=== PATIENT | female | born 1940 | race Caucasian/White ===

== ENCOUNTER 2018-06-06 07:43 | Day surgery (SDC) | payer OTHER ==
--- NOTE | 2018-06-06 07:32 | EKG ---
Test Date: 2018-06-06 Test Time: 07:22:36 Division Head: SHAI MEASUREMENT RESULTS: Intervals: Rate: 79 NH: QRSD: 90 QT: 360 QTc: [address]: P: NH: QRS: 49 T: 60 INTERPRETIVE STATEMENTS: Atrial fibrillation Abnormal ECG Compared to ECG 07/16/2011 16:54:31 Sinus bradycardia no longer present Electronically Signed On 06-06-18 07:31:37 DIRECTOR PRISON by David Bautista
[2018-06-06] MEDS ORDERED: NA CHLORIDE 0.9% 1,000 ML ONE (08:15)
[2018-06-06] MEDS ORDERED: CEFAZOLIN 1GM (PREMIX IV) 1 GM/50 ML BAG ONE (08:15)
--- NOTE | 2018-06-06 09:06 | RAD REPORT ---
EXAM DESCRIPTION: Gaston Mahmood (2 Views)06/06/2018 7:41 am CLINICAL HISTORY: Preop COMPARISON: 2017 FINDINGS: The lungs appear clear of acute infiltrate. The heart is normal size IMPRESSION: No acute abnormalities displayed
[2018-06-06] MEDS ORDERED: PROPOFOL 200 MG/20 ML VIAL IV ONE (10:36)
[2018-06-06] MEDS ORDERED: LIDOCAINE 2% MPF 5 ML VIAL ONE (10:37)
[2018-06-06] MEDS ORDERED: FENTANYL CITR 100 MCG/2 ML ONE (10:37)
[2018-06-06] MEDS ORDERED: LIDOCAINE 1% MPF 5 ML VIAL ONE (11:09)
[2018-06-06] MEDS ORDERED: Mastisol Adhesive Liq ONE (11:49)
[2018-06-06] MEDS ORDERED: HYDROCODONE/APAP 7.5/325 MG TAB ONE (12:36)
[2018-06-06 12:46] VITALS: BP 140/70; TEMP 97.2; O2SAT 97
--- NOTE | 2018-06-07 00:38 | OP ---
Date of Procedure: 06/06/2018 Surgeon: Antione Chakraborty MD Solution Strategist: TEJA Wang. Preoperative Diagnosis: Left-sided headache, rule out temporal arteritis. Postoperative Diagnosis: Left-sided headache, rule out temporal arteritis. Procedure: Left temporal artery biopsy. Estimated Blood Loss: Minimal. Specimen: Left temporal artery. Findings: As above. Anesthesia: MAC. Complications: None. Disposition: The patient tolerated the procedure in stable condition and taken to the recovery in go od general condition. Description Of Procedure: The patient was brought to the OR and placed in supine position. MAC anes thesia was begun. The patient was prepped and draped in usual sterile fashion. Lidocaine 1% was inf iltrated locally. After ultrasound-guided device was used to confirm location of the branch of the t emporal artery, a 4-cm incision was made anterior superiorly to the left ear. Subcutaneous tissue wa s divided. Branch of temporal artery was identified. Proximal and distal control was obtained. A 4 -cm segment was excised and sent to Pathology and then, 4-0 silk was used to tie off both ends. Woun d was irrigated. Bleeding was controlled with cautery. A 3-0 chromic was used to approximate the blackman bcutaneous tissue and close the skin. Sterile dressing was applied. The patient was awakened and ta fletcher to recovery in good general condition. Discharge Note: The patient will go to day surgery, then home when stable. Disposition: Home. Condition: Stable. Discharge Instructions: Resume home meds and diet. Activity as tolerated. No heavy lifting. Remov e outer dressing in 2 days. Shower. Keep wound clean and dry. Keep Steri-Strips on at all times. Follow up in my office in 2 weeks. Call for appointment. Follow with Dr. Negron in 1 week. AMOS/TEGAN Voice ID: [id number] Report ID: [id number]
== END 2018-06-06 13:07 | disposition home or self-care (01) ==
LOC: OR 07:43
PROVIDERS: ATTEND Surgery
PROC: 03BT0ZX Excision of Left Temporal Artery, Open Approach, Diagnostic (ICD-10-PCS; principal; 2018-06-06 10:30)
DX: R51 Headache (principal); I10 Essential (primary) hypertension; E11.9 Type 2 diabetes mellitus without complications; Z80.9 Family history of malignant neoplasm, unspecified; Z83.3 Family history of diabetes mellitus
CPT/HCPCS: 37609; 71046; 82962 ×2; 88305; 93005; J0690; J2704; J3010; J7030

== ENCOUNTER 2019-02-22 10:33 | Observation (INO) | payer OTHER ==
[2019-02-22] MEDS ORDERED: HYDROMORPHONE HCL 1 MG/ML INJ IV PRN (12:28)
[2019-02-22 12:29] VITALS: BMI 25.4
[2019-02-22] MEDS ORDERED: ONDANSETRON 4 MG/2 ML VIAL IV PRN (13:00)
[2019-02-22] MEDS ORDERED: POLYETHYL GLY 3350 17 GM/DOSE PO PRN (13:00)
[2019-02-22] MEDS ORDERED: ONDANSETRON 4 MG (ODT) TAB PO PRN (13:00)
[2019-02-22] MEDS ORDERED: DIPHENHYDRAMINE 25 MG TAB/CAP PO PRN (13:00)
[2019-02-22] MEDS ORDERED: ACETAMINOPHEN 325 MG TABLET PO PRN (13:00)
[2019-02-22] MEDS ORDERED: LOPERAMIDE HCL 2 MG CAPSULE PO PRN (13:00)
[2019-02-22] MEDS: NACHLORIDE 0.45% 1,000 ML IV SCH (14:12)
[2019-02-22 14:53] LABS: Urine Appearance CLEAR; Urine Bilirubin NEGATIVE (NEG); Urine Blood 1+ (NEG); Urine Color YELLOW; Urine Glucose TRACE (NEG); Urine Protein NEGATIVE (NEG); Urine Specific Gravity 1.015 (1.005-1.030); Urine Urobilinogen 0.2 mg/dL (0.2-1.0); Urine pH 5.5 (5.0-7.0)
[2019-02-22 14:55] LABS: Absolute Lymphocytes (CBC) 1.2 K/uL (0.7-4.9); Basophils % 0.6 % (0-1.3); Hematocrit 31.7 % (36.0-45.0); Lymphocytes % 9.2 % (15.3-44.8); MPV 8.4 fL (7.6-11.3); RBC Red Blood Cell Count 3.94 M/uL (3.86-4.86)
[2019-02-22 14:58] LABS: Urine Microscopic Reflex ORDER UMIC
[2019-02-22 15:11] LABS: Protime INR 1.34
[2019-02-22 15:17] LABS: UR MICROALBUMIN 7.5 mg/dL (< 1.9)
[2019-02-22 15:24] LABS: Urine Bacteria <20 /HPF (<20); Urine Culture Reflex Order NOT NEEDED; Urine Mucus 1+ /HPF (NONE SEEN)
[2019-02-22 15:24] LABS: Albumin 3.5 g/dL (3.4-5.0); Bilirubin Direct 0.2 mg/dL (0-0.2); Bilirubin Total 0.6 mg/dL (0.2-1.0); Magnesium 1.5 mg/dL (1.8-2.4); Potassium 4.4 mmol/L (3.5-5.1); Protein, Total 6.3 g/dL (6.4-8.2); Thyroid Stimulating Hormone 1.15 uIU/mL (0.360-3.740)
--- NOTE | 2019-02-22 16:21 | RAD REPORT ---
EXAM DESCRIPTION: CT - Abdomen Pelvis W/Wo Contrast - 02/22/2019 3:32 pm CLINICAL HISTORY: abd pain Abdominal pain, flank pain COMPARISON: CT ABD PELVIS W CONTRAST dated 06/05/2009 TECHNIQUE: Axial non-contrast CT imaging was performed. Following this, biphasic contrast enhanced i maging through the abdomen and pelvis was performed with coronal and sagittal reformatted images. All CT scans are performed using dose optimization technique as appropriate and may include automated exposure control or mA/KV adjustment according to patient size. FINDINGS: The lower lung orourke are clear. Small hiatal hernia. The liver, spleen, pancreas and adrenal glands are normal. Severe right-sided hydronephrosis is present. There is no obstructing stone visualized. Findings are likely related to any right UPJ obstruction, potentially from a crossing vessel. Cysts are present in the cortex of both kidneys. Diverticulosis is present. Cholelithiasis is suspected. No bowel obstruction, free fluid or abscess. Appendectomy. No fracture or aggressive marrow process is seen. IMPRESSION: Severe right-sided hydronephrosis is present without obstructing calculus. This is favor ed to be related to a chronic UPJ obstruction, possibly related to a crossing vessel.
--- NOTE | 2019-02-22 16:35 | RAD REPORT ---
EXAM DESCRIPTION: RAD - Chest Pa And Lat (2 Views) - 02/22/2019 3:55 pm CLINICAL HISTORY: abd pain Chest pain. COMPARISON: Chest Pa And Lat (2 Views) dated 06/06/2018; Chest Pa And Lat (2 Views) dated 04/29/2017; C HEST PA AND LAT 2 VIEW dated 06/05/2009 FINDINGS: The lungs are hyperexpanded but clear. The heart is normal in size. No displaced fractures . IMPRESSION: Mild COPD.
[2019-02-22 17:25] LABS: Blood Morphology Comment NOT SEEN (NOT SEEN); Platelet Estimate ADEQ; Urine White Blood Cell Casts OK
[2019-02-22] MEDS: CARVEDILOL 12.5 MG TAB PO SCH (21:00)
[2019-02-22] MEDS ORDERED: ATORVASTATIN 10 MG TAB PO SCH (21:00)
[2019-02-23] MEDS: NACHLORIDE 0.45% 1,000 ML IV SCH (03:33)
[2019-02-23] MEDS ORDERED: LEVOTHYROXINE SOD 0.025 MG TAB PO SCH (06:00)
[2019-02-23 07:59] LABS: Absolute Lymphocytes (CBC) 2.1 K/uL (0.7-4.9); Basophils % 1.2 % (0-1.3); Hematocrit 34.3 % (36.0-45.0); Lymphocytes % 18.3 % (15.3-44.8); MPV 8.1 fL (7.6-11.3); RBC Red Blood Cell Count 4.25 M/uL (3.86-4.86)
[2019-02-23] MEDS ORDERED: METFORMIN HCL 500 MG TAB PO SCH (08:00)
[2019-02-23 08:36] LABS: Magnesium 1.6 mg/dL (1.8-2.4); Potassium 4.4 mmol/L (3.5-5.1)
--- NOTE | 2019-02-23 08:39 | EKG ---
Test Date: 2019-02-22 Test Time: 13:40:00 Horse Trainer: RANDEE MEASUREMENT RESULTS: Intervals: Rate: 112 MA: QRSD: 84 QT: 338 QTc: 461 [place]: P: MA: QRS: 67 T: 38 INTERPRETIVE STATEMENTS: Atrial fibrillation with rapid ventricular response Abnormal ECG Compared to ECG 06/06/2018 07:22:36 No significant changes Electronically Signed On 02-23-19 08:38:59 CDT by David Bautista
[2019-02-23] MEDS ORDERED: FUROSEMIDE 40 MG/4 ML VIAL IV ONE (08:53)
[2019-02-23] MEDS ORDERED: CITALOPRAM 10 MG TABLET PO SCH (09:00)
[2019-02-23] MEDS ORDERED: ENOXAPARIN 40 MG/0.4 ML SQ SCH (09:00)
[2019-02-23] MEDS ORDERED: IRBESARTAN 150 MG TAB PO SCH (09:00)
[2019-02-23] MEDS: CARVEDILOL 12.5 MG TAB PO SCH ×2 (09:00→12:29)
[2019-02-23] MEDS ORDERED: predniSONE 5 MG TAB PO SCH (09:00)
[2019-02-23] MEDS ORDERED: RANITIDINE 150 MG TABLET PO SCH (09:00)
--- NOTE | 2019-02-23 12:02 | RAD REPORT ---
EXAM DESCRIPTION: NM - Kidney Imag W/Flow F W - 02/23/2019 11:47 am CLINICAL HISTORY: to r/o upj obstructionflank pain COMPARISON: CT study February 22 TECHNIQUE: The patient was administered 10.9 millicuries technetium 99 M Mag 3. Dynamic flow imaging was obtained of the kidneys and bladder. Patient was administered 36 milligrams Lasix 10 minutes fol lowing initial radiopharmaceutical administration. Time activity curves were generated for each kidne y. FINDINGS: Dynamic flow imaging shows normal prompt activity of the left renal parenchyma extending q uickly into a prominent left renal pelvis. This matches the CT study. There is rapid drainage through the left collecting system into the urinary bladder. Right kidney does demonstrate activity in the cortical tissue but this is substantially diminished wh en compared to the left. No collecting system opacifications seen over the course of the dynamic flow imaging. The normal left time activity curve is seen. Time to peak activity was 6.4 minutes. Diminishing activ ity was noted prior to Lasix administration. There is continued decreasing activity in response to th e Lasix in the left kidney. Right kidney peak activity occurred at the very end of the imaging window. This could indicate that p eak activity has not been reached. There was no response to Lasix. Split function calculation was 62% left and 38% right. IMPRESSION: Right kidney UPJ obstruction pattern. There was no response to Lasix. No stone seen on t he recent CT study. This could be a congenital stricture or stricture secondary to a prior stone or i nflammation. No left kidney abnormality.
--- NOTE | 2019-02-23 12:49 | CON ---
History Of Present Illness: This is 78-year-old lady, who has developed right sudden flank pain. She was diagnosed with severe right hydronephrosis, right UPJ obstruction, very obstructed kidney, difficult to say whether it is crossing the vessel or not. Because the kidneys are so obstructed, she needs to go ahead and try to do a cysto-retrograde, possible place a stent. All the general information, alternatives, and risks were reviewed with her. She will need more definitive therapy later on. Past Medical History: 1. Dyslipidemia, benign hypertension, diabetes mellitus, atrial fibrillation, temporal arteritis. 2. Autonomic nervous system syndrome, small fiber neuropathy, endothelial dysfunction of coronary artery, left atrial dilation, wedge compression fracture of T7 vertebra, osteopenia. Medications: _, Eliquis, irbesartan, levothyroxine, metformin, prednisone, __. Review of Systems: Otherwise negative. Physical Examination: General Appearance: No acute distress, resting in bed, nonconversant, good historian. HEENT: Atraumatic, normocephalic. Lungs: Clear. Abdomen: Soft, benign. Heart: S1, S2. Extremities: Normal range of motion. Laboratories: Show white count 11.5, H and H 11.3 and 34.3, platelet count 289. Coags: PT 15.6, INR 1.3, PTT 38.9. Chemistry: Sodium 139, potassium 4.4 , chloride 103, carbon dioxide 30, BUN 13, creatinine 1.0, GFR 50, glucose 100. Urine study shows clear urine, pH 5.5, leukocyte esterase 1+, rbcs 5 to 10, wbc 20 to 50. Bacteria less than 20. Urine microalbumin 7.5, elevated. Microalbumin per creatinine ratio 107.7, elevated. Assessment: Right ureteropelvic junction. Plan: Cysto, right retrograde pyelogram and stent placement. BURKE/TEGAN Voice ID: [id number] Report ID: [id number] BRYAN
[2019-02-23] MEDS ORDERED: NA CHLORIDE 0.9% 1,000 ML ONE (12:59)
[2019-02-23] MEDS ORDERED: GENTAMICIN 100 MG/100 ML BAG 100 ML IV ONE (13:32)
[2019-02-23] MEDS ORDERED: LIDOCAINE 1% MPF 5 ML VIAL ONE (13:51)
[2019-02-23] MEDS ORDERED: FENTANYL CITR 100 MCG/2 ML ONE (13:51)
[2019-02-23] MEDS ORDERED: PROPOFOL 200 MG/20 ML VIAL IV ONE (13:51)
[2019-02-23] MEDS ORDERED: KETOROLAC 30 MG/ML INJ ONE (14:26)
[2019-02-23] MEDS ORDERED: ONDANSETRON 4 MG/2 ML VIAL ONE (14:27)
[2019-02-23] MEDS ORDERED: NS 0.9% VIAL 10 ML ONE (14:27)
[2019-02-23] MEDS ORDERED: EPHEDRINE SULF 50 MG/ML VIAL ONE (14:27)
--- NOTE | 2019-02-23 14:48 | RAD REPORT ---
EXAM DESCRIPTION: RAD - Urography Retrograde - 02/23/2019 2:42 pm CLINICAL HISTORY: ICD N 20.0 FINDINGS: Nine fluoroscopic spot images obtained. Fluoroscopy time 1.2 minutes Right ureter was cannulated and contrast administered. Subsequently a right ureteral stent was placed . Examination was performed by
[2019-02-23 15:07] VITALS: BP 124/74; TEMP 97.1; O2SAT 94
--- NOTE | 2019-02-23 17:24 | PN ---
Subjective: Patient is feeling a lot better. Denies any chest pain, nausea, or vomiting. Abdominal pain is controlled with pain medications. Physical Examination: Vital Signs: Blood pressure stable. HEENT: No JVD. No carotid bruits. Chest: Clear. Heart: regular Abdomen: No guarding, no rebound, no rigidity. Right lower quadrant mild tenderness. Assessment And Plan: 1. Right-sided major hydronephrosis, right UP junction obstruction. Dr. Brambila will have to do the surgery to relieve the obstruction because she is in significant amount of pain. 2. Diabetes, atrial fibrillation, high blood pressure, currently stable. She is medically stable for surgery with mild risk. Discussed with the patient's family, patient, and Dr. Brambila. BERTRAM/TEGAN Voice ID: [id number] Report ID: [id number] BRYAN
--- NOTE | 2019-02-24 01:11 | OP ---
Surgeon: Rivas Brambila MD Anesthesiologist: Dr. Johnson. Preoperative Diagnoses: Right ureteropelvic junction stricture, 40% function in the right kidney wit h high-grade obstruction. Postoperative Diagnoses: Right ureteropelvic junction stricture, 40% function in the right kidney wi th high-grade obstruction. Procedure Performed: Cystoscopy, right retrograde pyelogram, and insertion of double-J stent, 6-Fren ch x 26 cm. Anesthesia: General. Estimated Blood Loss: Minimal. Pathology Specimen: None. Findings: Narrow stricture at the UPJ. Coiled ureter. The wire was able to not engage. The ureter , which showed it was coiled, probably a redundant ureter on that side. The renal pelvis was very hy dronephrotic. Stent was placed without any complication. Indications: Pleasant 78-year-old lady, who for the first time had right flank pain. She never had any previous kidney troubles in her life, just an occasional UTI, came in for severe pain. Workup re vealed right UPJ obstruction. Calices were dilated and renal pelvis was very large with severe hydro nephrosis. However, she did have some good parenchyma on the right kidney. Left kidney looked fine. Nuclear renal scan was done with Lasix. She had no response to the Lasix. The nucleotide kept inc reasing in the renal pelvis consistent with high-grade obstruction. She was then given all the gener al information, alternatives, and risks pertaining for the stent. She was properly identified, taken to the operative suite, received preoperative antibiotics, gentamicin. Area was prepped and draped. On examination, she had approximately grade 3 cystocele. Ureter was scoped. Bladder was scoped. No tumors were found in the bladder. In order to find the orifices, one had to reduce the cystocele. We saw the right orifice and it was cannulated. Retrograde performed, contrast went up to the UPJ area and stopped. We then placed a guidewire up to this area. Guidewire slipped into the renal pelv is easily. We were able to place the 5-Pashto ureteral catheter up to the UPJ area, pulled the wire back, and did the contrast study showing narrowing of the ureter in this area. We then replaced the wire and measured ureter at 26 cm. We ahead and placed a 6-Pashto x 26 cm stent with a small loop le ft attached in the distal end. Plan: Plan for the patient to be transferred back to the floor and then home, and follow up with me in the office for more definitive therapy. BURKE/TEGAN Voice ID: [id number] Report ID: [id number]
== END 2019-02-23 17:35 | disposition home or self-care (01) ==
LOC: 4TH 11:46
PROVIDERS: ADMIT Internal Medicine; ATTEND Internal Medicine
PROC: 0T768DZ Dilation of Right Ureter with Intraluminal Device, Via Natural or Artificial Opening Endoscopic (ICD-10-PCS; principal; 2019-02-22)
PROC: BT1DZZZ Fluoroscopy of Right Kidney, Ureter and Bladder (ICD-10-PCS; 2019-02-22)
DX: N13.0 Hydronephrosis with ureteropelvic junction obstruction (principal); I10 Essential (primary) hypertension; E11.9 Type 2 diabetes mellitus without complications; I48.91 Unspecified atrial fibrillation; G62.9 Polyneuropathy, unspecified; E78.5 Hyperlipidemia, unspecified; M85.80 Other specified disorders of bone density and structure, unspecified site; Z79.02 Long term (current) use of antithrombotics/antiplatelets
CPT/HCPCS: 93005; 87088; 85025 ×2; 87086; 80048 ×2; 36415 ×2; 83735 ×2; 84100; 85610; 82962 ×8; 80076; 85730; 84443; 83036; 82570; 82607; 82306; 82043; 74178; 71046; 74420; 78708; 52332; 52005; Q9967; G0379; J2704; J1940; J3010; J1580; G0378 ×4; J7030; J2405; A9562; 81003; 81015

== ENCOUNTER 2019-06-28 08:38 | Emergency (ER) | payer OTHER ==
--- OUTSIDE RECORDS SUMMARY | 2019-06-28 08:40 | XMS REPORT ---
:1940 [facility] [address] [place] [address] Care Team Providers Name Role Phone LINK, FITO MARTINEZ Unavailable Unavailable Problems This patient has no known problems. Allergies, Adverse Reactions, Alerts This patient has no known allergies or adverse reactions. Medications This patient has no known medications. Results Test Description Test Time Test Comments Text Results Atomic Results Result Comments POCT-GLUCOSE METER 2019-04-20 12:21:00 Test Item Value Reference Range Comments POC-GLUCOSE METER (BEAKER) 170 mg/dL 70-110 : TESTED AT [address] (test nika=2034) [place], [address]: Lead Systems Architect/Event Organizer [id number] for MARK MARIA TERESAA POCT-GLUCOSE [id number] 08:57:00 Test Item Value Reference Range Comments POC-GLUCOSE METER (BEAKER) 238 mg/dL 70-110 : TESTED AT [address] (test gimz=9943) [facility], [address]: Lead Systems Architect/Event Organizer [id number] for MARIA TERESA LFORESA BASIC METABOLIC [id number] 05:29:00 Test Item Value Reference Range Comments SODIUM (BEAKER) (test 139 meq/L 136-145 msbz=946) POTASSIUM (BEAKER) (test 3.7 meq/L 3.5-5.1 nuyo=386) CHLORIDE (BEAKER) (test 106 meq/L 98-107 ysob=948) CO2 (BEAKER) (test 28 meq/L 22-29 geap=571) BLOOD UREA NITROGEN 7 mg/dL 7-21 (BEAKER) (test pqqd=799) CREATININE (BEAKER) (test 0.72 mg/dL 0.57-1.25 uprd=209) GLUCOSE RANDOM (BEAKER) 145 mg/dL 70-105 (test bnyl=624) CALCIUM (BEAKER) (test 8.2 mg/dL 8.4-10.2 ylui=599) EGFR (BEAKER) (test 78 mL/min/1.73 sq m ESTIMATED GFR IS NOT gfha=7585) ACCURATE CREATININE CLEARANCE IN PREDICTING GLOMERULAR FILTRATION RATE. ESTIMATED GFR IS NOT APPLICABLE FOR DIALYSIS PATIENTS. HEMOGLOBIN AND [id number] 05:07:00 Test Item Value Reference Range Comments HEMOGLOBIN (BEAKER) (test gjtx=214) 9.2 GM/DL 11.2-15.7 HEMATOCRIT (BEAKER) (test ojzz=353) 31.0 % 34.1-44.9 POCT-GLUCOSE [id number] 21:47:00 Test Item Value Reference Range Comments POC-GLUCOSE METER (BEAKER) 174 mg/dL 70-110 : TESTED AT [facility] [address] [facility] (test upln=6856) [facility], [address]: Lead Systems Architect/Event Organizer [id number] for JSUTO GARCIA [id number] 16:03:00 Test Item Value Reference Range Comments PHOSPHORUS (BEAKER) (test wavg=435) 2.1 mg/dL 2.3-4.7 [id number] 16:03:00 Test Item Value Reference Range Comments MAGNESIUM (BEAKER) (test oseh=868) 1.6 mg/dL 1.6-2.6 BASIC METABOLIC [id number] 16:03:00 Test Item Value Reference Range Comments SODIUM (BEAKER) (test 135 meq/L 136-145 ppbd=451) POTASSIUM (BEAKER) (test 4.7 meq/L 3.5-5.1 qspa=833) CHLORIDE (BEAKER) (test 104 meq/L 98-107 jnkj=935) CO2 (BEAKER) (test 30 meq/L 22-29 iteq=300) BLOOD UREA NITROGEN 8 mg/dL 7-21 (BEAKER) (test bvjk=147) CREATININE (BEAKER) (test 0.85 mg/dL 0.57-1.25 mhsv=598) GLUCOSE RANDOM (BEAKER) 298 mg/dL 70-105 (test mpms=807) CALCIUM (BEAKER) (test 8.4 mg/dL 8.4-10.2 emks=589) EGFR (BEAKER) (test 64 mL/min/1.73 sq m ESTIMATED GFR IS NOT xszt=8623) ACCURATE CREATININE CLEARANCE IN PREDICTING GLOMERULAR FILTRATION RATE. ESTIMATED GFR IS NOT APPLICABLE FOR DIALYSIS PATIENTS. BASIC METABOLIC [id number] 06:08:00 Test Item Value Reference Range Comments SODIUM (BEAKER) (test 134 meq/L 136-145 qqwl=175) POTASSIUM (BEAKER) (test 4.4 meq/L 3.5-5.1 oorr=882) CHLORIDE (BEAKER) (test 104 meq/L 98-107 qdxg=162) CO2 (BEAKER) (test 27 meq/L 22-29 mzef=991) BLOOD UREA NITROGEN 8 mg/dL 7-21 (BEAKER) (test iakz=176) CREATININE (BEAKER) (test 0.85 mg/dL 0.57-1.25 duqy=496) GLUCOSE RANDOM (BEAKER) 220 mg/dL 70-105 (test ndms=353) CALCIUM (BEAKER) (test 8.1 mg/dL 8.4-10.2 wgpd=645) EGFR (BEAKER) (test 64 mL/min/1.73 sq m ESTIMATED GFR IS NOT dooj=5971) ACCURATE CREATININE CLEARANCE IN PREDICTING GLOMERULAR FILTRATION RATE. ESTIMATED GFR IS NOT APPLICABLE FOR DIALYSIS PATIENTS. HEMOGLOBIN AND [id number] 05:30:00 Test Item Value Reference Range Comments HEMOGLOBIN (BEAKER) (test jpvh=527) 9.4 GM/DL 11.2-15.7 HEMATOCRIT (BEAKER) (test fzoq=716) 31.7 % 34.1-44.9 BASIC METABOLIC [id number] 07:01:00 Test Item Value Reference Range Comments SODIUM (BEAKER) (test 135 meq/L 136-145 mbqy=344) POTASSIUM (BEAKER) (test 4.2 meq/L 3.5-5.1 tavu=703) CHLORIDE (BEAKER) (test 102 meq/L 98-107 hvrf=058) CO2 (BEAKER) (test 29 meq/L 22-29 meje=908) BLOOD UREA NITROGEN 12 mg/dL 7-21 (BEAKER) (test rqpo=313) CREATININE (BEAKER) (test 0.79 mg/dL 0.57-1.25 uaui=200) GLUCOSE RANDOM (BEAKER) 189 mg/dL 70-105 (test xtpq=949) CALCIUM (BEAKER) (test 7.9 mg/dL 8.4-10.2 ksor=017) EGFR (BEAKER) (test 70 mL/min/1.73 sq m ESTIMATED GFR IS NOT qjuy=4004) ACCURATE CREATININE CLEARANCE IN PREDICTING GLOMERULAR FILTRATION RATE. ESTIMATED GFR IS NOT APPLICABLE FOR DIALYSIS PATIENTS. HEMOGLOBIN AND [id number] 05:59:00 Test Item Value Reference Range Comments HEMOGLOBIN (BEAKER) (test xiel=822) 9.3 GM/DL 11.2-15.7 HEMATOCRIT (BEAKER) (test ilxg=395) 31.2 % 34.1-44.9 BASIC METABOLIC [id number] 18:52:00 Test Item Value Reference Range Comments SODIUM (BEAKER) (test 135 meq/L 136-145 bkex=881) POTASSIUM (BEAKER) (test 4.4 meq/L 3.5-5.1 Specimen slightly iyyj=831) hemolyzed CHLORIDE (BEAKER) (test 103 meq/L 98-107 ovrm=438) CO2 (BEAKER) (test 28 meq/L 22-29 xglb=956) BLOOD UREA NITROGEN 16 mg/dL 7-21 (BEAKER) (test aygf=711) CREATININE (BEAKER) (test 0.82 mg/dL 0.57-1.25 Specimen slightly ovjk=499) hemolyzed GLUCOSE RANDOM (BEAKER) 173 mg/dL 70-105 (test adew=171) CALCIUM (BEAKER) (test 8.1 mg/dL 8.4-10.2 joqt=687) EGFR (BEAKER) (test 67 mL/min/1.73 sq m ESTIMATED GFR IS NOT vmzl=2430) ACCURATE CREATININE CLEARANCE IN PREDICTING GLOMERULAR FILTRATION RATE. ESTIMATED GFR IS NOT APPLICABLE FOR DIALYSIS PATIENTS. Please obtain in PACUHEMOGLOBIN AND [id number] 18:16:00 Test Item Value Reference Range Comments HEMOGLOBIN (BEAKER) (test ucmk=751) 9.6 GM/DL 11.2-15.7 HEMATOCRIT (BEAKER) (test azdy=041) 31.3 % 34.1-44.9 Please obtain in PACUFL, FLUORO, NON-SPECIFIC, UP TO 1 [id number] 16:57: 00Reason for exam:->right ureteral stent insertion, retrogradeFINAL REPORT TECHNICAL NOTE-C-ARM FLUOROSCOPY No interpretation rendered. 68.4 seconds fluoroscopy time. Signed: Henri Jacobeport Verified Date/Time: 04/17/2019 16:57:10 Reading Location: [facility] Radiology Reading Room POCT- GLUCOSE [id number] 12:32:00 Test Item Value Reference Range Comments POC-GLUCOSE METER (BEAKER) 136 mg/dL 70-110 : TESTED AT [address] (test ewbp=7703) [facility], [address]: Lead Systems Architect/Event Organizer [id number] for MUMTAZ MCKEON
--- NOTE | 2019-06-28 10:31 | RAD REPORT ---
EXAM DESCRIPTION: CT - Head C Spine Mpr Wo Con - 06/28/2019 9:54 am CLINICAL HISTORY: Head and neck injury status post fall. Head and neck pain COMPARISON: None. TECHNIQUE: Computed axial tomography of the head and cervical spine was obtained. Sagittal and coronal reconstruction was performed. All CT scans are performed using dose optimization technique as appropriate and may include automated exposure control or mA/KV adjustment according to patient size. FINDINGS: A low-density mass is present within the right frontal lobe. The size is difficult to dete rmine without IV contrast. It may measure approximately 30 millimeters. The right lateral ventricle i s compressed. Shift of midline structures approximately 6 millimeters to the left. An intracranial bleed is not noted. A cervical fracture is not visualized. No dislocation is noted. 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 A cervical fracture is not visualized. Exam was discussed with [facility] emergency room 10:25 a.m. June 28, 2019
[2019-06-28] MEDS ORDERED: dexAMETHasone 10 MG/ML VIAL ONE (10:59)
--- NOTE | 2019-06-28 11:25 | EDPHYS ---
Physician Documentation [facility] Name: Alvaro Seo Age: 78 yrs Sex: Female : 1940 Arrival Date: 06/28/2019 Time: 08:41 Bed 13 Private MD: ED Physician Quinton Welch HPI: 06/28 09:29 This 78 yrs old Female presents to ER via Ambulatory with complaints of pain rn all over, Fall Injury, Head Injury-Adult. 09:29 It is unknown whether or not the patient has had similar symptoms in the past. . rn 09:34 Details of fall: The patient fell from an upright position. Onset: The symptoms/episode rn began/occurred this morning. Associated injuries: The patient sustained injury to the head. Severity of symptoms: At their worst the symptoms were mild, in the emergency department the symptoms are unchanged. Reports went to bathroom this AM, fell, hit back of head, no gross visible injury, + known brain tumor and had headache prior to injury. + nausea. Seen by Dr. Bautsita and sent here, no eliquis for 2 days. Has appt in [place] to further work up brain mass. . Historical: - Allergies: 09:06 No Known Allergies; tw2 - Home Meds: 10:47 levothyroxine 25 mcg tab 1 tab once daily [Active]; Eliquis 5 mg oral tab 1 tab 2 times tw2 per day (Last Dose: 06/26/2019 08:00) [Active]; citalopram 20 mg tab 1 tab once daily [Active]; metformin 1,000 mg Oral tab 1 tab 2 times per day [Active]; dexamethasone 4 mg Oral tab once daily [Active]; irbesartan 300 mg oral tab 1 tab once daily [Active]; ranitidine HCl 300 mg Oral tab 1 tab [Active]; carvedilol 12.5 mg oral tab 1 tab daily [Active]; - PMHx: 10:47 Hypothyroidism; Hypertension; Diabetes - NIDDM; tw2 - Immunization history:: Adult Immunizations. - Social history:: Smoking status: . - Family history:: not pertinent. - Hospitalizations: : No recent hospitalization is reported. - Ebola Screening: : Patient denies travel to an Ebola-affected area in the 21 days before illness onset. ROS: 09:34 Constitutional: Negative for fever, chills, and weight loss, Eyes: Negative for injury, rn pain, redness, and discharge, Cardiovascular: Negative for chest pain, palpitations, and edema, Respiratory: Negative for shortness of breath, cough, wheezing, and pleuritic chest pain, Abdomen/GI: + nausea Back: Negative for injury and pain, MS/Extremity: Negative for injury and deformity, Skin: Negative for injury, rash, and discoloration, Neuro: + headache, neg for seizure. Exam: 09:34 Constitutional: This is a well developed, well nourished patient who is awake, alert, rn and in no acute distress. Head/Face: Normocephalic, atraumatic. Eyes: Pupils equal round and reactive to light, extra-ocular motions intact. Lids and lashes normal. Conjunctiva and sclera are non-icteric and not injected. Cornea within normal limits. Periorbital areas with no swelling, redness, or edema. ENT: + left lower facial droop Neck: Trachea midline, no thyromegaly or masses palpated, and no cervical lymphadenopathy. Supple, full range of motion without nuchal rigidity, or vertebral point tenderness. No Meningismus. Cardiovascular: Regular rate and rhythm. No pulse deficits. Respiratory: No increased work of breathing, no retractions or nasal flaring. Abdomen/GI: soft, non-tender MS/ Extremity: Pulses equal, no cyanosis. Neurovascular intact. Full, normal range of motion. Equal circumference. Neuro: Awake and alert, GCS 15, oriented to person, place, time, and situation. + left lower facial droop. + 4/5 strength left side leg> arm. Vital Signs: 08:55 BP 161 / 80; Pulse 82; Resp 17; Temp 97.6(O); Pulse Ox 98% on R/A; Weight 66.68 kg; ss Height 5 ft. 4 in. (162.56 cm); Pain 4/10; 10:05 BP 145 / 88; Pulse 78; Resp 17; Pulse Ox 95% on R/A; tw2 08:55 Body Mass Index 25.23 (66.68 kg, 162.56 cm) Ross Coma Score: 08:55 Eye Response: spontaneous(4). Verbal Response: oriented(5). Motor Response: obeys commands(6). Total: 15. Trauma Score (Adult): 08:55 Eye Response: spontaneous(1); Verbal Response: oriented(1); Motor Response: obeys ss commands(2); Systolic BP: > 89 mm Hg(4); Respiratory Rate: 10 to 29 per min(4); Ross Score: 15; Trauma Score: 12 MDM: 09:03 Patient medically screened. rn 10:43 ED course: CT neg for acute traumatic findings, + right brain mass, they are contacting [facility] to fax results for comparison, given family reports weaker over last few days, and possibly led to her fall.. 11:22 Differential diagnosis: closed head injury, contusion. Data reviewed: vital signs, rn nurses notes, radiologic studies, CT scan, and as a result, I will discharge patient. Counseling: I had a detailed discussion with the patient and/or guardian regarding: the historical points, exam findings, and any diagnostic results supporting the discharge/admit diagnosis, radiology results, the need for outpatient follow up, to return to the emergency department if symptoms worsen or persist or if there are any questions or concerns that arise at home. Special discussion: I discussed with the patient/guardian in detail that at this point there is no indication for admission to the hospital. It is understood, however, that if the symptoms persist or worsen the patient needs to return immediately for re-evaluation. ED course: No acute traumatic findings on ct head/cspine, family brought read from MRI 2 weeks ago, shows 5mm left shift, is known, and no drastic clinical changes. Has f/u in 4 days, will dc home with return precautions to f/u as planned.. 06/28 09:15 Order name: CT Head C Spine; Complete Time: 10:34 rn 06/28 10:43 Order name: IV Start; Complete Time: 11:27 rn 06/28 11:24 Order name: Wound Care; Complete Time: 11:47 tw2 Administered Medications: 11:08 Drug: Decadron - Dexamethasone 10 mg Route: IVP; Site: left antecubital; tw2 11:24 Follow up: Response: No adverse reaction tw2 11:40 Drug: Tylenol 325 mg Route: PO; tw2 11:48 Follow up: Response: No adverse reaction tw2 Disposition: 06/28/19 11:24 Discharged to Home. Impression: Superficial injury of head, Brain mass. - Condition is Stable. - Discharge Instructions: Head Injury, Adult. - Medication Reconciliation Form, Thank You Letter, Antibiotic Education, Prescription Opioid Use form. - Follow up: Private Physician; When: As needed; Reason: Recheck today's complaints, Re-evaluation by your physician. - Problem is new. - Symptoms have improved. Signatures: Dispatcher [employer] EDMS Quinton Welch MD MD rn Magallanes, BRITTNI Rees RN tw2 Corrections: (The following items were deleted from the chart) 09:33 09:29 Per EMS report, fell 2 days ago, reports pain all over, cannot localize, report rn hypoxia with oxygen in mid 80s at home, not on home O2, state family did not know his medical problems or medications. . rn 09:29 Onset: The symptoms/episode began/occurred 2 day(s) ago, rn rn 09:29 Associated injuries: The patient sustained injury to the head, injury to the rn chest, injury to the abdomen, rn 09:29 Severity of symptoms: At their worst the symptoms were moderate, in the emergency rn department the symptoms are unchanged, rn 09:29 Constitutional: Negative for fever, chills, and weight loss, Eyes: Negative for rn injury, pain, redness, and discharge, Neck: Negative for injury, pain, and swelling, Cardiovascular: + chest wall pain Respiratory: + sob Abdomen/GI: + abd pain Back: Negative for injury and pain, MS/Extremity: + leg pain Neuro: Negative for numbness, tingling, and seizure, rn 09:36 09:29 Constitutional: Thin male, moaning in pain, + indwelling ruiz catheter with rn heavy sediment. Head/Face: Normocephalic, atraumatic. Neck: No vertebral point tenderness Chest/axilla: Normal chest wall appearance and motion. + bilateral lateral rib tenderness without ecchymosis or crepitus. Cardiovascular: Regular rate and rhythm . No pulse deficits. Respiratory: + faint exp wheezing bilaterally with coarse breath sounds Abdomen/GI: soft, + LLQ tenderness, no ecchymosis Back: No spinal tenderness. MS/ Extremity: Pulses equal, no cyanosis. + painful ROM bilateral hips Neuro: Awake and alert, GCS 15. Motor strength 4/5 in all extremities. Sensory grossly intact. rn 11:59 11:24 06/28/2019 11:24 Discharged to Home. Impression: Superficial injury of head; tw2 Brain mass. Condition is Stable. Forms are Medication Reconciliation Form, Thank You Letter, Antibiotic Education, Prescription Opioid Use. Follow up: Private Physician; When: As needed; Reason: Recheck today's complaints, Re-evaluation by your physician. Problem is new. Symptoms have improved. rn
--- NOTE | 2019-06-28 11:25 | ER ---
Nurse's Notes [facility] Name: Alvaro Seo Age: 78 yrs Sex: Female : 1940 Arrival Date: 06/28/2019 Time: 08:41 Bed 13 Private MD: Diagnosis: Superficial injury of head;Brain mass Presentation: 06/28 08:55 Presenting complaint: states: "She fell at 0630 this morning. She has a brain ss tumor, and she did bump her head on the sink a bit. I couldn't find a knot or anything. We took her to have an EKG this morning and they recommended us to come to the ER." Pt c/o of mild nausea. Pt recently quit taking Eliquis. Care prior to arrival: None. Mechanism of Injury: Fall from standing position. Trauma event details: Injury occurred in the [facility], Injury occurred: at home. Injury occurred: June 28, 2019 Injury occurred at: 06:30. 08:55 Acuity: LIBBY 3 ss 08:55 Method Of Arrival: Ambulatory ss 09:00 Transition of care: patient was not received from another setting of care. Onset of ss symptoms was June 28, 2019. Risk Assessment: Do you want to hurt yourself or someone else? Patient reports no desire to harm self or others. Initial Sepsis Screen: Does the patient meet any 2 criteria? No. Patient's initial sepsis screen is negative. Does the patient have a suspected source of infection? No. Patient's initial sepsis screen is negative. Historical: - Allergies: 09:06 No Known Allergies; tw2 - Home Meds: 10:47 levothyroxine 25 mcg tab 1 tab once daily [Active]; Eliquis 5 mg oral tab 1 tab 2 times tw2 per day (Last Dose: 06/26/2019 08:00) [Active]; citalopram 20 mg tab 1 tab once daily [Active]; metformin 1,000 mg Oral tab 1 tab 2 times per day [Active]; dexamethasone 4 mg Oral tab once daily [Active]; irbesartan 300 mg oral tab 1 tab once daily [Active]; ranitidine HCl 300 mg Oral tab 1 tab [Active]; carvedilol 12.5 mg oral tab 1 tab daily [Active]; - PMHx: 10:47 Hypothyroidism; Hypertension; Diabetes - NIDDM; tw2 - Immunization history:: Adult Immunizations. - Social history:: Smoking status: . - Family history:: not pertinent. - Hospitalizations: : No recent hospitalization is reported. - Ebola Screening: : Patient denies travel to an Ebola-affected area in the 21 days before illness onset. Screenin:55 Abuse screen: Denies threats or abuse. Denies injuries from another. Tuberculosis ss screening: Never had TB. 11:58 Nutritional screening: No deficits noted. Fall Risk Secondary diagnosis (15 points) tw2 impaired mobility. Assessment: 09:00 Reassessment: Pt reports she had a worse headache before the fall than she does now. ss Also c/o mild neck pain which also was present prior to the fall. 09:30 General: Appears in no apparent distress. Behavior is calm, cooperative, appropriate tw2 for age. Pain: Complains of pain in left arm. Neuro: Level of Consciousness is awake, alert, obeys commands, Oriented to person, place, situation. Cardiovascular: Heart tones S1 S2 Patient's skin is warm and dry. Respiratory: Airway is patent Respiratory effort is even, unlabored, Respiratory pattern is Breath sounds are clear bilaterally. GI: No signs and/or symptoms were reported involving the gastrointestinal system. Abdomen is flat, Bowel sounds present X 4 quads. : No signs and/or symptoms were reported regarding the genitourinary system. EENT: No signs and/or symptoms were reported regarding the EENT system. Derm: skin tears noted to left forearm, minimal bleeding noted. Musculoskeletal: Range of motion: intact in all extremities. 10:06 Reassessment: Patient appears in no apparent distress at this time. Patient and/or tw2 family updated on plan of care and expected duration. Pain level reassessed. Patient is alert, oriented x 3, equal unlabored respirations, skin warm/dry/pink. 10:42 Reassessment: provider at bedside at this time. tw2 11:58 Reassessment: Patient appears in no apparent distress at this time. Patient and/or tw2 family updated on plan of care and expected duration. Pain level reassessed. Patient is alert, oriented x 3, equal unlabored respirations, skin warm/dry/pink. Vital Signs: 08:55 BP 161 / 80; Pulse 82; Resp 17; Temp 97.6(O); Pulse Ox 98% on R/A; Weight 66.68 kg; ss Height 5 ft. 4 in. (162.56 cm); Pain 4/10; 10:05 BP 145 / 88; Pulse 78; Resp 17; Pulse Ox 95% on R/A; tw2 08:55 Body Mass Index 25.23 (66.68 kg, 162.56 cm) ss Huslia Coma Score: 08:55 Eye Response: spontaneous(4). Verbal Response: oriented(5). Motor Response: obeys ss commands(6). Total: 15. Trauma Score (Adult): 08:55 Eye Response: spontaneous(1); Verbal Response: oriented(1); Motor Response: obeys ss commands(2); Systolic BP: > 89 mm Hg(4); Respiratory Rate: 10 to 29 per min(4); Princess Score: 15; Trauma Score: 12 ED Course: 08:41 Patient arrived in ED. ag5 08:55 Arm band placed on. tw2 08:57 Triage completed. ss 09:03 Quinton Welch MD is Attending Physician. rn 09:04 Negrita Magallanes RN is Primary Nurse. tw2 09:05 Bed in low position. Call light in reach. Adult w/ patient. tw2 09:54 CT Head C Spine In Process Unspecified. EDMS 11:00 Inserted saline lock: 22 gauge in right antecubital area, using aseptic technique. tw2 11:56 No provider procedures requiring assistance completed. tw2 11:56 IV discontinued, intact, bleeding controlled, No redness/swelling at site. Pressure tw2 dressing applied. Administered Medications: 11:08 Drug: Decadron - Dexamethasone 10 mg Route: IVP; Site: left antecubital; tw2 11:24 Follow up: Response: No adverse reaction tw2 11:40 Drug: Tylenol 325 mg Route: PO; tw2 11:48 Follow up: Response: No adverse reaction tw2 Outcome: 11:24 Discharge ordered by . rn 11:57 Discharged to home via wheelchair, with family. tw2 11:57 Condition: stable 11:57 Discharge instructions given to patient, family, Instructed on discharge instructions, follow up and referral plans. safety practices, wound care, Demonstrated understanding of instructions, follow-up care, wound care. 11:59 Patient left the ED. tw2 Signatures: Dispatcher [employer] EDMS Reebkah Quinton, MD MD rn Andie Montgomery, RN RN ss Negrita Magallanes RN RN tw2 Lydia Tena [facility]
[2019-06-28] MEDS ORDERED: ACETAMINOPHEN 325 MG TABLET ONE (11:31)
[2019-06-28 16:06] VITALS: TEMP 97.6
[2019-06-28 16:07] VITALS: BP 145/88; O2SAT 95
== END 2019-06-28 11:59 | disposition home or self-care (01) ==
LOC: ER 08:38
DX: S00.90XA Unspecified superficial injury of unspecified part of head, initial encounter (principal); G93.9 Disorder of brain, unspecified; W01.198A Fall on same level from slipping, tripping and stumbling with subsequent striking against other object, initial encounter; Y93.9 Activity, unspecified; Y92.012 Bathroom of single-family (private) house as the place of occurrence of the external cause; R22.0 Localized swelling, mass and lump, head; E03.9 Hypothyroidism, unspecified
CPT/HCPCS: 70450; 72125; 96374; 99283; J1100

== ENCOUNTER 2019-07-29 15:57 | Emergency (ER) | payer OTHER ==
--- OUTSIDE RECORDS SUMMARY | 2019-07-29 15:59 | XMS REPORT ---
:1940 [facility] [address] [place] [address] Care Team Providers Name Role Phone LINK, FITO MARTINEZ Unavailable Unavailable Problems This patient has no known problems. Allergies, Adverse Reactions, Alerts This patient has no known allergies or adverse reactions. Medications This patient has no known medications. Encounters Start End Encounter Admission Attending Care Care Encounter Date/Time Date/Time Type Type Clinicians Facility Department ID 2019-07-05 Inpatient [facility] [id number] 08:56:00 2019-07-09 2019-07-09 Outpatient [facility] [id number] 09:48:00 09:48:00 Results Test Description Test Time Test Comments Text Results Atomic Results Result Comments POCT-GLUCOSE METER 2019-04-20 12:21:00 Test Item Value Reference Range Comments POC-GLUCOSE METER (BEAKER) 170 mg/dL 70-110 : TESTED AT [address] (test wmoj=8087) [place], [address]: Neck Fitter/Display Mechanic [id number] for BRENDAN FLORESAIRA POCT-GLUCOSE [id number] 08:57:00 Test Item Value Reference Range Comments POC-GLUCOSE METER (BEAKER) 238 mg/dL 70-110 : TESTED AT [address] (test kckd=0877) [facility], [address]: Neck Fitter/Display Mechanic [id number] for MARK KEYAIRA BASIC METABOLIC [id number] 05:29:00 Test Item Value Reference Range Comments SODIUM (BEAKER) (test 139 meq/L 136-145 bmzv=771) POTASSIUM (BEAKER) (test 3.7 meq/L 3.5-5.1 mhbf=986) CHLORIDE (BEAKER) (test 106 meq/L 98-107 kenu=202) CO2 (BEAKER) (test 28 meq/L 22-29 oabh=480) BLOOD UREA NITROGEN 7 mg/dL 7-21 (BEAKER) (test zqca=183) CREATININE (BEAKER) (test 0.72 mg/dL 0.57-1.25 zymi=861) GLUCOSE RANDOM (BEAKER) 145 mg/dL 70-105 (test xvgp=764) CALCIUM (BEAKER) (test 8.2 mg/dL 8.4-10.2 bqum=407) EGFR (BEAKER) (test 78 mL/min/1.73 sq m ESTIMATED GFR IS NOT cymn=5441) ACCURATE CREATININE CLEARANCE IN PREDICTING GLOMERULAR FILTRATION RATE. ESTIMATED GFR IS NOT APPLICABLE FOR DIALYSIS PATIENTS. HEMOGLOBIN AND [id number] 05:07:00 Test Item Value Reference Range Comments HEMOGLOBIN (BEAKER) (test jgke=081) 9.2 GM/DL 11.2-15.7 HEMATOCRIT (BEAKER) (test wuxp=751) 31.0 % 34.1-44.9 POCT-GLUCOSE [id number] 21:47:00 Test Item Value Reference Range Comments POC-GLUCOSE METER (BEAKER) 174 mg/dL 70-110 : TESTED AT [facility] [address] [place] [address] (test laby=2985) [facility], [address]: Neck Fitter/Display Mechanic [id number] for JUSTO GARCIA [id number] 16:03:00 Test Item Value Reference Range Comments PHOSPHORUS (BEAKER) (test btns=533) 2.1 mg/dL 2.3-4.7 [id number] 16:03:00 Test Item Value Reference Range Comments MAGNESIUM (BEAKER) (test bgmv=737) 1.6 mg/dL 1.6-2.6 BASIC METABOLIC [id number] 16:03:00 Test Item Value Reference Range Comments SODIUM (BEAKER) (test 135 meq/L 136-145 rvoi=760) POTASSIUM (BEAKER) (test 4.7 meq/L 3.5-5.1 fwvt=897) CHLORIDE (BEAKER) (test 104 meq/L 98-107 rhyc=044) CO2 (BEAKER) (test 30 meq/L 22-29 odeo=153) BLOOD UREA NITROGEN 8 mg/dL 7-21 (BEAKER) (test rsxx=836) CREATININE (BEAKER) (test 0.85 mg/dL 0.57-1.25 hcyj=932) GLUCOSE RANDOM (BEAKER) 298 mg/dL 70-105 (test cfhg=116) CALCIUM (BEAKER) (test 8.4 mg/dL 8.4-10.2 upci=058) EGFR (BEAKER) (test 64 mL/min/1.73 sq m ESTIMATED GFR IS NOT uask=4152) ACCURATE CREATININE CLEARANCE IN PREDICTING GLOMERULAR FILTRATION RATE. ESTIMATED GFR IS NOT APPLICABLE FOR DIALYSIS PATIENTS. BASIC METABOLIC [id number] 06:08:00 Test Item Value Reference Range Comments SODIUM (BEAKER) (test 134 meq/L 136-145 vgqc=095) POTASSIUM (BEAKER) (test 4.4 meq/L 3.5-5.1 ezsv=273) CHLORIDE (BEAKER) (test 104 meq/L 98-107 pnew=471) CO2 (BEAKER) (test 27 meq/L 22-29 nfxp=152) BLOOD UREA NITROGEN 8 mg/dL 7-21 (BEAKER) (test iawp=433) CREATININE (BEAKER) (test 0.85 mg/dL 0.57-1.25 jdcq=869) GLUCOSE RANDOM (BEAKER) 220 mg/dL 70-105 (test uyin=757) CALCIUM (BEAKER) (test 8.1 mg/dL 8.4-10.2 tfnl=158) EGFR (BEAKER) (test 64 mL/min/1.73 sq m ESTIMATED GFR IS NOT nasx=2026) ACCURATE CREATININE CLEARANCE IN PREDICTING GLOMERULAR FILTRATION RATE. ESTIMATED GFR IS NOT APPLICABLE FOR DIALYSIS PATIENTS. HEMOGLOBIN AND [id number] 05:30:00 Test Item Value Reference Range Comments HEMOGLOBIN (BEAKER) (test tehw=302) 9.4 GM/DL 11.2-15.7 HEMATOCRIT (BEAKER) (test nsmk=117) 31.7 % 34.1-44.9 BASIC METABOLIC [id number] 07:01:00 Test Item Value Reference Range Comments SODIUM (BEAKER) (test 135 meq/L 136-145 tlat=603) POTASSIUM (BEAKER) (test 4.2 meq/L 3.5-5.1 jucm=296) CHLORIDE (BEAKER) (test 102 meq/L 98-107 hfzx=380) CO2 (BEAKER) (test 29 meq/L 22-29 hvwu=655) BLOOD UREA NITROGEN 12 mg/dL 7-21 (BEAKER) (test mxya=795) CREATININE (BEAKER) (test 0.79 mg/dL 0.57-1.25 yekm=235) GLUCOSE RANDOM (BEAKER) 189 mg/dL 70-105 (test xrqh=917) CALCIUM (BEAKER) (test 7.9 mg/dL 8.4-10.2 ggym=373) EGFR (BEAKER) (test 70 mL/min/1.73 sq m ESTIMATED GFR IS NOT sdjm=0073) ACCURATE CREATININE CLEARANCE IN PREDICTING GLOMERULAR FILTRATION RATE. ESTIMATED GFR IS NOT APPLICABLE FOR DIALYSIS PATIENTS. HEMOGLOBIN AND [id number] 05:59:00 Test Item Value Reference Range Comments HEMOGLOBIN (BEAKER) (test skum=509) 9.3 GM/DL 11.2-15.7 HEMATOCRIT (BEAKER) (test jazo=564) 31.2 % 34.1-44.9 BASIC METABOLIC [id number] 18:52:00 Test Item Value Reference Range Comments SODIUM (BEAKER) (test 135 meq/L 136-145 lflv=068) POTASSIUM (BEAKER) (test 4.4 meq/L 3.5-5.1 Specimen slightly xnmt=722) hemolyzed CHLORIDE (BEAKER) (test 103 meq/L 98-107 iuiq=603) CO2 (BEAKER) (test 28 meq/L 22-29 xrxv=676) BLOOD UREA NITROGEN 16 mg/dL 7-21 (BEAKER) (test tmam=112) CREATININE (BEAKER) (test 0.82 mg/dL 0.57-1.25 Specimen slightly qzlv=356) hemolyzed GLUCOSE RANDOM (BEAKER) 173 mg/dL 70-105 (test qbkj=149) CALCIUM (BEAKER) (test 8.1 mg/dL 8.4-10.2 cvpp=598) EGFR (BEAKER) (test 67 mL/min/1.73 sq m ESTIMATED GFR IS NOT kxln=7780) ACCURATE CREATININE CLEARANCE IN PREDICTING GLOMERULAR FILTRATION RATE. ESTIMATED GFR IS NOT APPLICABLE FOR DIALYSIS PATIENTS. Please obtain in PACUHEMOGLOBIN AND [id number] 18:16:00 Test Item Value Reference Range Comments HEMOGLOBIN (BEAKER) (test fctk=679) 9.6 GM/DL 11.2-15.7 HEMATOCRIT (BEAKER) (test pyhd=104) 31.3 % 34.1-44.9 Please obtain in PACUFL, FLUORO, NON-SPECIFIC, UP TO 1 [id number] 16:57: 00Reason for exam:->right ureteral stent insertion, retrogradeFINAL REPORT TECHNICAL NOTE-C-ARM FLUOROSCOPY No interpretation rendered. 68.4 seconds fluoroscopy time. Signed: Henri Jacob Verified Date/Time: 04/17/2019 16:57:10 Reading Location: [facility] Radiology Reading Room POCT- GLUCOSE [id number] 12:32:00 Test Item Value Reference Range Comments POC-GLUCOSE METER (TAYLOR) 136 mg/dL 70-110 : TESTED AT [address] (test ardm=4864) [facility], [address]: Neck Fitter/Display Mechanic [id number] for MUMTAZ MCKEON
[2019-07-29] MEDS ORDERED: NA CHLORIDE 0.9% 500 ML ONE (16:36)
--- NOTE | 2019-07-29 16:42 | RAD REPORT ---
EXAM DESCRIPTION: RAD - Chest Single View - 07/29/2019 4:35 pm CLINICAL HISTORY: DYSPNEA Chest pain. COMPARISON: Chest Pa And Lat (2 Views) dated 02/22/2019; Chest Pa And Lat (2 Views) dated 06/06/2018; C hest Pa And Lat (2 Views) dated 04/29/2017; CHEST PA AND LAT 2 VIEW dated 06/05/2009 FINDINGS: Portable technique limits examination quality. The lungs are grossly clear. The heart is normal in size. No displaced fractures. IMPRESSION: No acute intrathoracic process suspected.
[2019-07-29 16:52] LABS: Absolute Lymphocytes (CBC) 1.2 K/uL (0.7-4.9); Hematocrit 33.7 % (36.0-45.0); MPV 9.4 fL (7.6-11.3)
[2019-07-29 17:14] LABS: Urine Blood NEGATIVE (NEG); Urine Glucose NEGATIVE (NEG); Urine Protein TRACE (NEG)
[2019-07-29 17:14] LABS: ALT/SGPT 15 U/L (12-78); AST/SGOT 7 U/L (15-37); Albumin 2.5 g/dL (3.4-5.0); Alkaline Phosphatase 66 U/L (45-117); BUN Blood Urea Nitrogen 47 mg/dL (7-18); Bicarbonate 24 mmol/L (21-32); Bilirubin Direct < 0.1 mg/dL (0-0.2); Bilirubin Total 0.6 mg/dL (0.2-1.0); Glucose Level 143 mg/dL (74-106); Magnesium 1.6 mg/dL (1.8-2.4); NT PRO-BNP 2120 pg/mL (<450); Potassium 4.6 mmol/L (3.5-5.1); Protein, Total 5.4 g/dL (6.4-8.2); Sodium Level 138 mmol/L (136-145)
[2019-07-29 18:01] LABS: Blood Morphology Comment NOTED (NOT SEEN); Hypochromasia 1+; Platelet Estimate ADEQ
[2019-07-29 18:21] LABS: Urine Bacteria <20 /HPF (<20); Urine Culture Reflex Order NOT NEEDED; Urine RBC <5 /HPF (NONE SEEN)
[2019-07-29 18:22] LABS: Urine Amorphous Sediment 2+ /HPF (NONE SEEN); Urine Mucus 1+ /HPF (NONE SEEN)
[2019-07-29] MEDS ORDERED: Magnesium Sulfate 2gm IVPB 2 G/50 ML BAG IV ONE (18:29)
--- NOTE | 2019-07-29 19:37 | ER ---
Nurse's Notes [facility] Name: Alvaro Seo Age: 78 yrs Sex: Female : 1940 Arrival Date: 07/29/2019 Time: 16:04 Bed 6 Private MD: Diagnosis: Dehydration;Muscle weakness (generalized);Elevated white blood cell count Presentation: 07/28 16:05 Chief complaint: EMS states: home health nurse reported a low BP reading and iw generalized weakness x 2 days , has had decreased fluid intake, has hx of brain neoplasm, currently on chemo, pt has hx of Afib, HR was up to 140 now down to 102, IV established, NS infusing to RAC. Coronavirus screen: The patient has NOT traveled to [place] in the past 14 days. Proceed with normal triage procedures. Ebola Screen: Patient negative for fever greater than or equal to 101.5 degrees Fahrenheit, and additional compatible Ebola Virus Disease symptoms Patient denies exposure to infectious person. Patient denies travel to an Ebola-affected area in the 21 days before illness onset. No symptoms or risks identified at this time. Initial Sepsis Screen: Does the patient meet any 2 criteria? No. Patient's initial sepsis screen is negative. Does the patient have a suspected source of infection? No. Patient's initial sepsis screen is negative. Risk Assessment: Do you want to hurt yourself or someone else? Patient reports no desire to harm self or others. Care prior to arrival: Medication(s) given: Normal saline infusion, 500 mL, IV initiated. 20 GA, in the right antecubital area, Glucose check: 165. 16:05 Method Of Arrival: EMS: [facility] iw 16:05 Acuity: LIBBY 2 iw Historical: - Allergies: 16:15 No Known Allergies; iw - Home Meds: 16:15 carvedilol 12.5 mg Oral tab 1 tab daily [Active]; citalopram 20 mg tab 1 tab once daily iw [Active]; dexamethasone 4 mg Oral tab once daily [Active]; Eliquis 5 mg Oral tab 1 tab 2 times per day [Active]; irbesartan 300 mg Oral tab 1 tab once daily [Active]; levothyroxine 25 mcg tab 1 tab once daily [Active]; metformin 1,000 mg Oral tab 1 tab 2 times per day [Active]; ranitidine HCl 300 mg Oral tab 1 tab [Active]; - PMHx: 16:15 Diabetes - NIDDM; Hypertension; Hypothyroidism; Atrial Fib; iw - Social history:: Smoking status: Patient denies any tobacco usage or history of. Screenin:30 Abuse screen: Denies threats or abuse. Nutritional screening: No deficits noted. aa5 Tuberculosis screening: No symptoms or risk factors identified. Fall Risk Fall in past 12 months (25 points). IV access (20 points). Total Oswald Fall Scale indicates High Risk Score (45 or more points). Fall prevention measures have been instituted. Side Rails Up X 2 Placed Close to Nursing Station. Assessment: 16:20 General: Appears uncomfortable, Behavior is calm, cooperative. Pain: Denies pain. aa5 Neuro: Level of Consciousness is awake, alert, obeys commands, Oriented to person, place, time, situation, Linen Worker are weak bilaterally Weakness Speech is normal, Facial symmetry appears normal, Pupils are PERRLA. Cardiovascular: Heart tones S1 S2 present Rhythm is atrial fibrillation with rapid ventricular response. Respiratory: Airway is patent Respiratory effort is even, unlabored, Respiratory pattern is regular, symmetrical, Breath sounds are clear bilaterally. GI: Abdomen is round non-distended, Bowel sounds present X 4 quads. Abd is soft and non tender X 4 quads. Reports decreased appetite Patient currently denies diarrhea, nausea, vomiting. : No signs and/or symptoms were reported regarding the genitourinary system. EENT: No signs and/or symptoms were reported regarding the EENT system. Derm: Skin is pink, warm \\T\\ dry. Skin tears noted to left arm and wound noted to left leg that are dressed with Kerlix. Pt's states "she has a nurse that takes care of all those wounds, she got them after she fell". Musculoskeletal: Range of motion: intact in all extremities. 17:00 Reassessment: Patient and/or family updated on plan of care and expected duration. Pain aa5 level reassessed. Patient is alert, oriented x 3, equal unlabored respirations, skin warm/dry/pink. Patient denies pain at this time. 18:04 Reassessment: Lab at bedside attempting to collect 2nd set of blood cultures, lactate, aa5 and procalcitonin. . 18:16 Reassessment: perioperative tech, Fidelia states she was only able to get lactate and procalcitonin. aa5 Unable to obtain 2nd set of blood cultures, PA was notified and ok to cancel 2nd set of blood cultures at this time. Lab contacted to cancel 2nd set of blood cultures. . 18:20 Reassessment: Patient is alert, oriented x 3, equal unlabored respirations, skin aa5 warm/dry/pink. Patient denies pain at this time. 20:14 Reassessment: No changes from previously documented assessment. Patient and/or family ll1 updated on plan of care and expected duration. Pain level reassessed. Patient is alert, oriented x 3, equal unlabored respirations, skin warm/dry/pink. Awaiting transfer. at bedside. No complaints. 21:31 Reassessment: GCS 15 UPON TRANSFER. 0 PAIN SCALE. IV IS FLUSHING FREELY WITH IV FLUIDS rv ONGOING. REPORT GIVEN TO FARAZ ELKINS AT [facility]. Vital Signs: 16:05 BP 123 / 67; Pulse 108; Resp 16 S; Temp 96.9(TE); Pulse Ox 98% on R/A; iw 17:00 BP 109 / 64; Pulse 96; Resp 16 S; Pulse Ox 98% on R/A; aa5 18:20 BP 102 / 64; Pulse 88; Resp 18 S; Temp 97.9(O); Pulse Ox 97% on R/A; aa5 19:40 BP 106 / 77; Pulse 90; Resp 15; Pulse Ox 98% ; ea 20:00 BP 103 / 58; Pulse 84; Resp 18; Pulse Ox 98% ; ea 20:13 BP 103 / 58; Pulse 92; Resp 15; Pulse Ox 98% ; ll1 21:30 BP 104 / 56; Pulse 89; Resp 16; Temp 98; Pulse Ox 99% on R/A; oe Vitals: 20:13 Cardiac Rhythm Assessment Atrial fibrillation. ll1 ED Course: 16:04 Patient arrived in ED. iw 16:05 Jewel Kim PA is PHCP. jr8 16:05 Ashok Hanna MD is Attending Physician. jr8 16:11 EKG done, by ED staff, reviewed by Jewel SANCHEZ. jb1 16:12 Triage completed. iw 16:15 Arm band placed on. iw 16:20 Patient has correct armband on for positive identification. Bed in low position. Call aa5 light in reach. Side rails up X2. lunchroom monitor on. Pulse ox on. NIBP on. 16:21 Winnie Walters, RN is Primary Nurse. aa5 16:35 XRAY Chest (1 view) In Process Unspecified. EDMS 16:35 Initial lab(s) drawn, by me, sent to lab. aa5 16:35 Maintain EMS IV. Dressing intact. Good blood return noted. Site clean \\T\\ dry. Gauge \\T\\ aa 5 site: 20 G to R AC. 16:55 Straight cath inserted, using sterile technique, 16 Fr. Specimen obtained. Returned aa5 300ml. 17:45 First set of blood cultures drawn by me. aa5 19:05 Report given to BRITTNI Rossi. aa5 20:15 No provider procedures requiring assistance completed. Patient transferred, IV remains ea in place. Administered Medications: 16:37 Drug: NS 0.9% 500 ml Route: IV; Rate: bolus; Site: right antecubital; aa5 17:00 Follow up: IV Status: Completed infusion; IV Intake: 500ml aa5 18:25 Drug: Magnesium Sulfate 2 grams Route: IVPB; Infused Over: 2 hrs; Site: right aa5 antecubital; 20:13 Follow up: Response: No adverse reaction; IV Status: Completed infusion ll1 20:01 Drug: NS 0.9% 1000 ml Route: IV; Rate: 125 ml/hr; Site: right antecubital; ll1 21:33 Follow up: IV Status: Infusion continued upon transfer rv Intake: 17:00 IV: 500ml; Total: 500ml. aa5 Outcome: 19:36 ER care complete, transfer ordered by . abdiel 20:15 Instructed on the need for admit, Demonstrated understanding of instructions. ea 21:34 Transferred by ground EMS to [facility], Transfer form completed. X-rays sent rv w/ patient. 21:34 Condition: stable 21:34 Patient left the ED. rv Signatures: Dispatcher [employer] EDMS Willy Miller jb1 Agueda Crockett, Winnie Bosch RN, RN RN aa5 Jewel Kim PA PA jr8 Oswaldo Ramos Elena, RN RN ea Vicente, Ronaldo, RN RN rv Aramis, Lynsay, RN RN ll1 Corrections: (The following items were deleted from the chart) 16:25 16:05 BP 123 / 67; Pulse 108bpm; Resp 16bpm; Spontaneous; Pulse Ox 98% RA; iw iw 18:46 16:30 Patient has correct armband on for positive identification. Bed in low position. aa5 Call light in reach. Side rails up X2. aa 18:46 16:30 lunchroom monitor on. Pulse ox on. NIBP on. aa5 aa5
--- NOTE | 2019-07-29 19:37 | EDPHYS ---
Physician Documentation [facility] Name: Alvaro Seo Age: 78 yrs Sex: Female : 1940 Arrival Date: 07/29/2019 Time: 16:04 Bed 6 Private MD: SAUD Physician Ashok Hanna HPI: 07/28 16:46 This 78 yrs old Female presents to ER via EMS with complaints of General jr8 Weakness. 16:46 Patient currently undergoing chemotherapy and radiation for glioblastoma of the brain. jr8 Stated that over the past several days has become more increasingly weak and not wanting to eat much. Denies pain, nausea, vomiting, fevers, or diarrhea . Severity of symptoms: At their worst the symptoms were moderate in the emergency department the symptoms are unchanged. The patient has not experienced similar symptoms in the past. The patient has not recently seen a physician. Historical: - Allergies: 16:15 No Known Allergies; iw - Home Meds: 16:15 carvedilol 12.5 mg Oral tab 1 tab daily [Active]; citalopram 20 mg tab 1 tab once daily iw [Active]; dexamethasone 4 mg Oral tab once daily [Active]; Eliquis 5 mg Oral tab 1 tab 2 times per day [Active]; irbesartan 300 mg Oral tab 1 tab once daily [Active]; levothyroxine 25 mcg tab 1 tab once daily [Active]; metformin 1,000 mg Oral tab 1 tab 2 times per day [Active]; ranitidine HCl 300 mg Oral tab 1 tab [Active]; - PMHx: 16:15 Diabetes - NIDDM; Hypertension; Hypothyroidism; Atrial Fib; iw - Social history:: Smoking status: Patient denies any tobacco usage or history of. ROS: 16:46 Eyes: Negative for injury, pain, redness, and discharge, ENT: Negative for injury, jr8 pain, and discharge, Neck: Negative for injury, pain, and swelling, Cardiovascular: Negative for chest pain, palpitations, and edema, Respiratory: Negative for shortness of breath, cough, wheezing, and pleuritic chest pain, Abdomen/GI: Negative for abdominal pain, nausea, vomiting, diarrhea, and constipation, Back: Negative for injury and pain, MS/Extremity: Negative for injury and deformity, Skin: Negative for injury, rash, and discoloration, Neuro: Negative for headache, weakness, numbness, tingling, and seizure. 16:46 Constitutional: Positive for fatigue, malaise, poor PO intake. Exam: 16:46 Eyes: Pupils equal round and reactive to light, extra-ocular motions intact. Lids and jr8 lashes normal. Conjunctiva and sclera are non-icteric and not injected. Cornea within normal limits. Periorbital areas with no swelling, redness, or edema. ENT: Nares patent. No nasal discharge, no septal abnormalities noted. Tympanic membranes are normal and external auditory canals are clear. Oropharynx with no redness, swelling, or masses, exudates, or evidence of obstruction, uvula midline. Mucous membranes moist. Neck: Trachea midline, no thyromegaly or masses palpated, and no cervical lymphadenopathy. Supple, full range of motion without nuchal rigidity, or vertebral point tenderness. No Meningismus. Respiratory: Lungs have equal breath sounds bilaterally, clear to auscultation and percussion. No rales, rhonchi or wheezes noted. No increased work of breathing, no retractions or nasal flaring. Abdomen/GI: Soft, non-tender, with normal bowel sounds. No distension or tympany. No guarding or rebound. No evidence of tenderness throughout. Back: No spinal tenderness. No costovertebral tenderness. Full range of motion. Skin: Warm, dry with normal turgor. Normal color with no rashes, no lesions, and no evidence of cellulitis. small avulsive wounds to left leg and arm from previous fall MS/ Extremity: Pulses equal, no cyanosis. Neurovascular intact. Full, normal range of motion. Neuro: Awake and alert, GCS 15, oriented to person, place, time, and situation. Cranial nerves II-XII grossly intact. Motor strength 5/5 in all extremities. Sensory grossly intact. Cerebellar exam normal. Normal gait. 16:46 Cardiovascular: Rate: tachycardic, Rhythm: irregularly irregular, Pulses: Pulses are 2+ in right radial artery and left radial artery. Heart sounds: normal, normal S1and S2, murmur, systolic, grade 3 over 6, Edema: is not appreciated, JVD: is not appreciated. 16:46 ECG was reviewed by the Attending Physician. Vital Signs: 16:05 BP 123 / 67; Pulse 108; Resp 16 S; Temp 96.9(TE); Pulse Ox 98% on R/A; iw 17:00 BP 109 / 64; Pulse 96; Resp 16 S; Pulse Ox 98% on R/A; aa5 18:20 BP 102 / 64; Pulse 88; Resp 18 S; Temp 97.9(O); Pulse Ox 97% on R/A; aa5 19:40 BP 106 / 77; Pulse 90; Resp 15; Pulse Ox 98% ; ea 20:00 BP 103 / 58; Pulse 84; Resp 18; Pulse Ox 98% ; ea 20:13 BP 103 / 58; Pulse 92; Resp 15; Pulse Ox 98% ; ll1 21:30 BP 104 / 56; Pulse 89; Resp 16; Temp 98; Pulse Ox 99% on R/A; oe MDM: 16:05 Patient medically screened. wendi 19:13 Data reviewed: vital signs, nurses notes, lab test result(s), EKG, radiologic studies, [facility] plain films. Data interpreted: Pulse oximetry: on room air is 97 %. Interpretation: normal. Counseling: I had a detailed discussion with the patient and/or guardian regarding: the historical points, exam findings, and any diagnostic results supporting the discharge/admit diagnosis, lab results, radiology results, the need to transfer to another facility. ED course: Patient dehydrated and with lactic acidosis secondary to dehydration. Needs to be admitted. Wants to be transferred to [facility] since she had radiation therapy there tomorrow . 19:36 ED course: Dr. Gmoez with [facility] accepted patient for continuity of care . 07/28 16:15 Order name: Basic Metabolic Panel; Complete Time: 17:22 07/28 16:15 Order name: CBC with Diff; Complete Time: 18:06 07/28 16:15 Order name: LFT's; Complete Time: 17:22 07/28 16:15 Order name: Magnesium; Complete Time: 17:22 07/28 16:15 Order name: NT PRO-BNP; Complete Time: 17:22 07/28 16:15 Order name: PT-INR; Complete Time: 17:14 07/28 16:15 Order name: XRAY Chest (1 view); Complete Time: 16:46 07/28 16:18 Order name: Urine Microscopic Only; Complete Time: 18:25 07/28 17:01 Order name: Urine Dipstick--Ancillary (enter results); Complete Time: 17:22 ms 07/28 17:13 Order name: Blood Culture Adult (2) 07/28 17:13 Order name: Lactate; Complete Time: 18:46 07/28 17:13 Order name: Procalcitonin; Complete Time: 19:02 07/28 18:01 Order name: Manual Differential; Complete Time: 18:06 EDMS 07/28 16:15 Order name: EKG; Complete Time: 16:16 07/28 16:15 Order name: Cardiac monitoring; Complete Time: 17:00 07/28 16:15 Order name: EKG - Nurse/Tech; Complete Time: 17:19 07/28 16:15 Order name: IV Saline Lock; Complete Time: 17:00 07/28 16:15 Order name: Labs collected and sent; Complete Time: 17:00 07/28 16:15 Order name: O2 Per Protocol; Complete Time: 17:00 07/28 16:15 Order name: O2 Sat Monitoring; Complete Time: 17:00 07/28 16:18 Order name: Urine Dipstick-Ancillary (obtain specimen); Complete Time: 17:00 07/28 17:00 Order name: Straight Cath - Urine: VO received at 1645; Complete Time: 17:00 aa5 EC:46 Rate is 108 beats/min. Rhythm is irregularly irregular, A fib with No ectopy. QRS [place] jr8 is Normal. QRS interval is normal at 86 msec. QT interval is normal at 434 msec. No Q waves. T waves are Normal. No ST changes noted. Clinical impression: Atrial Fibrillation. Interpreted by me. Reviewed by me. Administered Medications: 16:37 Drug: NS 0.9% 500 ml Route: IV; Rate: bolus; Site: right antecubital; aa5 17:00 Follow up: IV Status: Completed infusion; IV Intake: 500ml aa5 18:25 Drug: Magnesium Sulfate 2 grams Route: IVPB; Infused Over: 2 hrs; Site: right aa5 antecubital; 20:13 Follow up: Response: No adverse reaction; IV Status: Completed infusion ll1 20:01 Drug: NS 0.9% 1000 ml Route: IV; Rate: 125 ml/hr; Site: right antecubital; ll1 21:33 Follow up: IV Status: Infusion continued upon transfer rv Disposition: 07/29 07:19 Co-signature as Attending Physician, Ashok Hanna MD I agree with the assessment and wendi plan of care. Disposition: 07/29/19 19:36 Transfer ordered to [facility]. Diagnosis are Dehydration, Muscle weakness (generalized), Elevated white blood cell count. - Reason for transfer: Higher level of care. - Accepting physician is Dr. Gomez. - Condition is Fair. - Problem is new. - Symptoms are unchanged. Signatures: Dispatcher [employer] EDAshok Araya MD MD cha Williams, Irene, RN RN Winnie Montalvo RN RN tan5 Jewel Kim PA PA jr8 Flo Wilson RN RN rv Jacoby Self RN RN ll1 Corrections: (The following items were deleted from the chart) 07/28 21:34 19:36 07/29/2019 19:36 Transfer ordered to [facility]. Diagnosis is rv Dehydration; Muscle weakness (generalized); Elevated white blood cell count. Reason for transfer: Higher level of care. Accepting physician is Dr. Gomez. Condition is Fair. Problem is new. Symptoms are unchanged. jr8
[2019-07-29] MEDS ORDERED: NA CHLORIDE 0.9% 1,000 ML ONE (19:57)
[2019-07-29 21:47] VITALS: BP 104/56; TEMP 98; O2SAT 99
--- NOTE | 2019-07-30 15:34 | EKG ---
Test Date: 2019-07-29 Test Time: 16:08:00 Funeral Arranger: YAMILEX MEASUREMENT RESULTS: Intervals: Rate: 108 MD: QRSD: 86 QT: 324 QTc: 434 [place]: P: MD: QRS: 47 T: 135 INTERPRETIVE STATEMENTS: Atrial fibrillation with rapid ventricular response Nonspecific ST and T wave abnormality Abnormal ECG Compared to ECG 02/22/2019 13:40:00 ST (T wave) deviation now present Electronically Signed On 07-30-19 15:33:34 GRANTS ADMINISTRATOR by David Bautista
== END 2019-07-29 21:34 | disposition short-term general hospital (02) ==
LOC: ER 15:57
DX: E86.0 Dehydration (principal); M62.81 Muscle weakness (generalized); D72.829 Elevated white blood cell count, unspecified; I10 Essential (primary) hypertension; E11.9 Type 2 diabetes mellitus without complications; E03.9 Hypothyroidism, unspecified; I48.91 Unspecified atrial fibrillation
CPT/HCPCS: 96365; 96361; 93005; 87040; 85025; 80048; 36415; 83735; 85610; 80076; 83605; 84145; 83880; 71045; 51702; 99285; 96366; J3475; J7040; J7030; 81003; 81015